=== PATIENT | male | born 1960 | race Caucasian/White ===

== ENCOUNTER 2017-04-14 22:06 | Inpatient (IN) | payer MEDICAID ==
[~2017-04-14] VITALS: Ht 167.6 cm; Wt 73.2 kg
[~2017-04-14 22:06] MED LIST: GABA600T2; HYDR-3686 PO; LEVA15HF4 INH; OMEP20CA10 PO; RISP1TAB3 PO
[2017-04-14] MEDS ORDERED: ondansetron/PF 4mg/2ml inj IV ONE (22:25)
[2017-04-14] MEDS ORDERED: morphine 2 MG/ML inj. syringe IV ONE (22:25)
[2017-04-14 22:59] LABS: CLARITY,URINE CLEAR (Clear); COLOR,URINE YELLOW (Yellow); GLUCOSE, URINE NEGATIVE (Neg); KETONES,URINE TRACE mg/dl (Neg); LEUKOCYTE ESTERASE ,URINE NEGATIVE (Neg); NITRITES, URINE NEGATIVE (Neg); OCCULT BLOOD,URINE LARGE (Neg); PROTEIN,URINE NEGATIVE (Neg)
[2017-04-14 23:05] LABS: UA COLLECTION TYPE CLN CATCH MIDSTREAM
[2017-04-14 23:10] LABS: SQUAMOUS EPITHELIAL CELL,UR FEW /LPF (FEW)
[2017-04-14 23:11] LABS: BACTERIA,URINE FEW /HPF (Neg); RBC,URINE 50-100 /HPF (0-2); WBC,URINE 0-4 /HPF (0-4)
[2017-04-14 23:18] LABS: BASOPHILS % (AUTO) 0.1 % (0-1); EOSINOPHILS % (AUTO) 0.6 % (0-6); HEMATOCRIT 30.3 % (42.0-52.0); HEMOGLOBIN 10.4 g/dl (14.0-17.9); LYMPHOCYTES # (AUTO) 1.3 X10'3 (1.1-4.8); LYMPHOCYTES % (AUTO) 35.6 % (21-51); MEAN CORPUSCULAR HGB CONC 34.4 % (33.0-36.5); MEAN CORPUSCULAR VOLUME 92.9 FL (78-98); MONOCYTES # (AUTO) 0.3 X10'3 (0-0.9); MONOCYTES % (AUTO) 8.8 % (2-12); NEUTROPHILS # (AUTO) 1.9 X10'3 (1.8-7.7); NEUTROPHILS % (AUTO) 54.9 % (42-75); PLATELET COUNT 126 X10'3 (140-440); RED BLOOD COUNT 3.26 X10'6 (4.70-6.10); RED CELL DISTRIBUTION WIDTH 14.9 % (11.5-14.5); WHITE BLOOD COUNT 3.5 X10'3 (4.5-11.0)
[2017-04-14 23:30] LABS: INR 1.1 INR; PARTIAL THROMBOPLASTIN TIME 33 SECONDS (22-32); PROTHROMBIN TIME 11.3 SECONDS (9.0-12.0)
[2017-04-14 23:35] LABS: ALANINE AMINOTRANSFERASE 40 U/L (12-78); ALBUMIN 2.5 G/DL (3.4-5.0); ALBUMIN/GLOBULIN RATIO 0.9 (1.1-1.5); ALKALINE PHOSPHATASE 122 IU/L (46-116); ANION GAP 16 (8-16); ASPARTATE AMINO TRANSFERASE 53 U/L (10-37); BILIRUBIN,TOTAL 0.6 MG/DL (0.1-1.0); BLOOD UREA NITROGEN 17 MG/DL (7-18); BUN/CREATININE RATIO 13.1 (5.4-32.0); CALCIUM 7.7 MG/DL (8.5-10.1); CHLORIDE 91 MMOL/L (99-107); GLUCOSE 95 MG/DL (70-104); LIPASE 154 U/L (73-393); POTASSIUM 3.6 MMOL/L (3.5-5.1); SODIUM 124 MMOL/L (135-145); TOTAL CARBON DIOXIDE 17.5 MMOL/L (24-32); TOTAL PROTEIN 5.2 G/DL (6.4-8.2); eGFR 58 ML/MIN
[2017-04-14] MEDS ORDERED: furosemide 10 MG/1 ML 10ml inj IV ONE (23:35)
[2017-04-14] MEDS ORDERED: lactulose 20gm/30ml cup PO ONE (23:45)
[2017-04-14] MEDS ORDERED: neomycin sulfate 500mg tablet PO ONE (23:45)
[2017-04-15] MEDS ORDERED: haloperidol lactate 5mg/ml inj IM PRN (00:55)
[2017-04-15] MEDS ORDERED: dextrose 50%-water 50ml dispensing syringe IV PRN (00:55)
[2017-04-15] MEDS ORDERED: acetaminophen 325mg tablet PO PRN ×2 (00:55)
[2017-04-15] MEDS ORDERED: metoclopramide 5 mg/ml inj IV PRN (00:55)
[2017-04-15] MEDS ORDERED: magnesium Cl slow-release 64mg tablet PO PRN (00:55)
[2017-04-15] MEDS ORDERED: LORazepam 1 MG tablet PO PRN (00:55)
[2017-04-15] MEDS ORDERED: lactulose 20gm/30ml cup PO PRN (00:55)
[2017-04-15] MEDS ORDERED: mag hydrox/Alum hydrox/simeth 30ml oral suspension PO PRN (00:55)
[2017-04-15] MEDS ORDERED: ondansetron/PF 4mg/2ml inj IV PRN (00:55)
[2017-04-15] MEDS ORDERED: potassium Cl 20 mEq SR tablet PO PRN ×2 (00:55)
[2017-04-15] MEDS ORDERED: diphenhydrAMINE 25mg capsule PO PRN (00:55)
[2017-04-15] MEDS ORDERED: diphenhydrAMINE 50 mg/ml inj IV PRN (00:55)
[2017-04-15] MEDS ORDERED: potassium Cl 40MEQ/NS 500ml 500 ML IV PRN (00:55)
[2017-04-15] MEDS ORDERED: acetaminophen 650mg rectal suppository RC PRN (00:55)
[2017-04-15] MEDS ORDERED: magnesium 4gm in 100ml NS 100 ML IV PRN (00:55)
[2017-04-15] MEDS ORDERED: magnesium 2GM in 50ml NS 50 ML IV PRN (00:55)
[2017-04-15] MEDS ORDERED: morphine 2 MG/ML inj. syringe IV PRN ×2 (00:55)
[2017-04-15] MEDS ORDERED: haloperidol 5mg tablet PO PRN (00:55)
[2017-04-15] MEDS ORDERED: magnesium hydroxide 30ml (MOM) UD suspension PO PRN (00:55)
[2017-04-15] MEDS ORDERED: bisacodyl 10mg suppository rectal RC PRN (00:55)
[2017-04-15] MEDS ORDERED: HYDROcodone/acetaminophen 5mg/325mg tablet PO PRN (00:55)
[2017-04-15] MEDS ORDERED: HYDROmorphone inj. 0.5 MG/0.5 ML DISP.SYRIN IV PRN ×2 (00:55)
[2017-04-15] MEDS ORDERED: hydrOXYzine 25 MG tablet PO PRN (00:55)
[2017-04-15] MEDS ORDERED: LORazepam 2 mg/ml vial IV PRN (00:55)
[2017-04-15] MEDS ORDERED: thiamine 100mg/ml 2ml inj. IV ONE (01:32)
[2017-04-15 01:39] LABS: HEMOGLOBIN A1C 4.6 % (4.5-6.2)
[2017-04-15 01:50] LABS: MAGNESIUM 1.2 MG/DL (1.5-2.4)
[2017-04-15 02:00] VITALS: BP 146/85
[2017-04-15 07:00] VITALS: BP 125/88
[2017-04-15] MEDS ORDERED: pantoprazole 40mg Tablet.DR PO SCH (07:30)
[2017-04-15] MEDS ORDERED: furosemide 10 MG/1 ML 10ml inj IV SCH (08:00)
[2017-04-15] MEDS: K and/or MAG REPLACEMENT MC SCH (08:00)
[2017-04-15] MEDS: risperiDONE 0.5mg tablet PO SCH (09:36)
[2017-04-15] MEDS: docusate sod 100mg capsule PO SCH ×2 (09:36→20:00)
[2017-04-15] MEDS: pantoprazole 40mg Tablet.DR PO SCH (09:36)
[2017-04-15] MEDS: levoFLOXACIN-Levaquin 500mg/D5 100 ML IV SCH (09:38)
[2017-04-15] MEDS: HYDROcodone/acetaminophen 10/325mg tab PO PRN ×2 (09:47→19:44)
[2017-04-15 12:00] VITALS: BP 130/89
[2017-04-15 18:00] VITALS: BP 132/69
[2017-04-15] MEDS: furosemide 10 MG/1 ML 10ml inj IV SCH (19:43)
[2017-04-15] MEDS: risperiDONE 2mg tablet PO SCH (20:59)
[2017-04-15] MEDS ORDERED: temazepam 15mg capsule PO PRN (21:00)
[2017-04-15 21:01] LABS: ALBUMIN 2.2 G/DL (3.4-5.0); ANION GAP 12 (8-16); BLOOD UREA NITROGEN 19 MG/DL (7-18); BUN/CREATININE RATIO 13.6 (5.4-32.0); CALCIUM 7.8 MG/DL (8.5-10.1); CHLORIDE 98 MMOL/L (99-107); GLUCOSE 111 MG/DL (70-104); POTASSIUM 3.4 MMOL/L (3.5-5.1); SODIUM 129 MMOL/L (135-145); TOTAL CARBON DIOXIDE 19.2 MMOL/L (24-32); eGFR 53 ML/MIN
[2017-04-16] VITALS: BP 106/79
[2017-04-16] MEDS: HYDROcodone/acetaminophen 10/325mg tab PO PRN ×3 (02:57→21:57)
[2017-04-16] MEDS: docusate sod 100mg capsule PO SCH ×2 (06:56→21:56)
[2017-04-16] MEDS: pantoprazole 40mg Tablet.DR PO SCH (07:12)
[2017-04-16] MEDS: furosemide 10 MG/1 ML 10ml inj IV SCH ×2 (07:13→21:56)
[2017-04-16] MEDS: levoFLOXACIN-Levaquin 500mg/D5 100 ML IV SCH (07:13)
[2017-04-16] MEDS: diatr meglu/diatrizoate 30ml oral sol.-(3 dose) bottle PO PRN ×2 (07:18→09:39)
[2017-04-16 07:28] VITALS: BP 160/88
[2017-04-16] MEDS: K and/or MAG REPLACEMENT MC SCH (08:00)
[2017-04-16 08:03] LABS: BASOPHILS % (AUTO) 0.5 % (0-1); EOSINOPHILS % (AUTO) 0.6 % (0-6); HEMATOCRIT 28.5 % (42.0-52.0); HEMOGLOBIN 9.9 g/dl (14.0-17.9); LYMPHOCYTES # (AUTO) 0.9 X10'3 (1.1-4.8); LYMPHOCYTES % (AUTO) 31.8 % (21-51); MEAN CORPUSCULAR HEMOGLOBIN 32.4 PG (27.0-31.0); MEAN CORPUSCULAR HGB CONC 34.7 % (33.0-36.5); MEAN CORPUSCULAR VOLUME 93.4 FL (78-98); MEAN PLATELET VOLUME 6.6 FL (7.4-10.4); MONOCYTES # (AUTO) 0.3 X10'3 (0-0.9); MONOCYTES % (AUTO) 10.8 % (2-12); NEUTROPHILS # (AUTO) 1.6 X10'3 (1.8-7.7); NEUTROPHILS % (AUTO) 56.3 % (42-75); PLATELET COUNT 107 X10'3 (140-440); RED BLOOD COUNT 3.05 X10'6 (4.70-6.10); RED CELL DISTRIBUTION WIDTH 15.4 % (11.5-14.5); WHITE BLOOD COUNT 2.9 X10'3 (4.5-11.0)
[2017-04-16 08:30] LABS: ALANINE AMINOTRANSFERASE 34 U/L (12-78); ALBUMIN 2.1 G/DL (3.4-5.0); ALBUMIN/GLOBULIN RATIO 0.8 (1.1-1.5); ALKALINE PHOSPHATASE 99 IU/L (46-116); ANION GAP 12 (8-16); ASPARTATE AMINO TRANSFERASE 39 U/L (10-37); BILIRUBIN,TOTAL 0.6 MG/DL (0.1-1.0); BLOOD UREA NITROGEN 20 MG/DL (7-18); BUN/CREATININE RATIO 14.6 (5.4-32.0); CALCIUM 7.8 MG/DL (8.5-10.1); CHLORIDE 99 MMOL/L (99-107); CHOL/HDL RATIO 4.9 (0.00-4.99); CHOLESTEROL 73 MG/DL (0-200); CREATININE 1.37 MG/DL (0.60-1.10); GLUCOSE 118 MG/DL (70-104); HDL CHOLESTEROL 15 MG/DL (35-60); LDL CHOLESTEROL 31 MG/DL (50-100); MAGNESIUM 1.1 MG/DL (1.5-2.4); SODIUM 131 MMOL/L (135-145); TOTAL CARBON DIOXIDE 20.1 MMOL/L (24-32); TOTAL PROTEIN 4.6 G/DL (6.4-8.2); TRIGLYCERIDES 99 MG/DL (20-135); eGFR 54 ML/MIN
[2017-04-16] MEDS: risperiDONE 0.5mg tablet PO SCH (09:38)
[2017-04-16 09:39] LABS: PLATELET ESTIMATE DECREASED; TOTAL CELLS COUNTED 100
[2017-04-16 09:40] LABS: POLYCHROMASIA 1+
[2017-04-16 09:41] LABS: ELLIPTOCYTES FEW; SCHISTOCYTES FEW; SPHEROCYTES FEW; TEAR DROP CELLS 1+
[2017-04-16 10:00] VITALS: BP 151/73
[2017-04-16] MEDS: potassium Cl 40MEQ/NS 500ml 500 ML IV PRN ×2 (12:24→15:48)
[2017-04-16] MEDS ORDERED: normal saline 1000ml 1,000 ML IV SCH (14:10)
[2017-04-16 16:15] VITALS: BP 153/84
[2017-04-16 16:32] VITALS: BP 150/94
[2017-04-16] MEDS: lactobacillus rhamnosus 10,000 MMU CELLS/CAPSULE PO SCH (16:46)
[2017-04-16] MEDS ORDERED: albumin (human) 25% 100 ML IV solution IV ONE (18:45)
[2017-04-16 19:00] VITALS: BP 166/87
[2017-04-16] MEDS: risperiDONE 2mg tablet PO SCH (21:56)
[2017-04-17] VITALS: BP 152/77
[2017-04-17 05:18] LABS: BASOPHILS % (AUTO) 0.4 % (0-1); EOSINOPHILS % (AUTO) 0.6 % (0-6); HEMATOCRIT 25.1 % (42.0-52.0); HEMOGLOBIN 8.8 g/dl (14.0-17.9); LYMPHOCYTES # (AUTO) 1.1 X10'3 (1.1-4.8); LYMPHOCYTES % (AUTO) 37.8 % (21-51); MEAN CORPUSCULAR HEMOGLOBIN 32.4 PG (27.0-31.0); MEAN CORPUSCULAR HGB CONC 34.9 % (33.0-36.5); MEAN CORPUSCULAR VOLUME 92.9 FL (78-98); MEAN PLATELET VOLUME 7.3 FL (7.4-10.4); MONOCYTES # (AUTO) 0.3 X10'3 (0-0.9); MONOCYTES % (AUTO) 8.3 % (2-12); NEUTROPHILS # (AUTO) 1.6 X10'3 (1.8-7.7); NEUTROPHILS % (AUTO) 52.9 % (42-75); PLATELET COUNT 96 X10'3 (140-440); RED CELL DISTRIBUTION WIDTH 15.3 % (11.5-14.5)
[2017-04-17 05:37] LABS: ALANINE AMINOTRANSFERASE 27 U/L (12-78); ALBUMIN 2.3 G/DL (3.4-5.0); ALBUMIN/GLOBULIN RATIO 1.1 (1.1-1.5); ALKALINE PHOSPHATASE 80 IU/L (46-116); ANION GAP 10 (8-16); ASPARTATE AMINO TRANSFERASE 30 U/L (10-37); BILIRUBIN,TOTAL 0.5 MG/DL (0.1-1.0); BLOOD UREA NITROGEN 17 MG/DL (7-18); BUN/CREATININE RATIO 14.7 (5.4-32.0); CALCIUM 7.6 MG/DL (8.5-10.1); CHLORIDE 105 MMOL/L (99-107); CREATININE 1.16 MG/DL (0.60-1.10); GLUCOSE 93 MG/DL (70-104); MAGNESIUM 1.8 MG/DL (1.5-2.4); POTASSIUM 3.6 MMOL/L (3.5-5.1); SODIUM 136 MMOL/L (135-145); TOTAL CARBON DIOXIDE 21.3 MMOL/L (24-32); TOTAL PROTEIN 4.4 G/DL (6.4-8.2); eGFR 66 ML/MIN
[2017-04-17] MEDS: HYDROcodone/acetaminophen 10/325mg tab PO PRN ×2 (05:53→12:08)
[2017-04-17] MEDS: docusate sod 100mg capsule PO SCH (07:25)
[2017-04-17] MEDS: furosemide 10 MG/1 ML 10ml inj IV SCH (07:30)
[2017-04-17] MEDS: pantoprazole 40mg Tablet.DR PO SCH (07:32)
[2017-04-17] MEDS: lactobacillus rhamnosus 10,000 MMU CELLS/CAPSULE PO SCH (07:32)
[2017-04-17] MEDS: levoFLOXACIN-Levaquin 500mg/D5 100 ML IV SCH (07:34)
[2017-04-17] MEDS: risperiDONE 0.5mg tablet PO SCH (07:34)
[2017-04-17 07:42] VITALS: BP 156/87
[2017-04-17] MEDS: K and/or MAG REPLACEMENT MC SCH (08:00)
[2017-04-17 12:36] VITALS: BP 151/82
[2017-04-18] MEDS ORDERED: furosemide 40mg tablet PO SCH (08:00)
[2017-04-18] MEDS ORDERED: spironolactone 25 MG tablet PO SCH (08:30)
== END 2017-04-17 16:38 | disposition left against medical advice (07) | DRG 280 ==
LOC: ER 22:07 → ED HOLD 04-15 00:52 → SUR 3N 04-15 01:56
PROVIDERS: ADMIT Family Medicine; ATTEND Internal Medicine
PROC: 0W9G3ZZ Drainage of Peritoneal Cavity, Percutaneous Approach (ICD-10-PCS; principal; 2017-04-16)
DX: K70.31 Alcoholic cirrhosis of liver with ascites (principal); K72.90 Hepatic failure, unspecified without coma; E87.2 Acidosis; E87.1 Hypo-osmolality and hyponatremia; E83.42 Hypomagnesemia; B19.20 Unspecified viral hepatitis C without hepatic coma; I10 Essential (primary) hypertension; K21.9 Gastro-esophageal reflux disease without esophagitis; F10.20 Alcohol dependence, uncomplicated; F41.9 Anxiety disorder, unspecified; F17.210 Nicotine dependence, cigarettes, uncomplicated; F20.9 Schizophrenia, unspecified; Z80.0 Family history of malignant neoplasm of digestive organs; Z83.3 Family history of diabetes mellitus; Z88.0 Allergy status to penicillin
CPT/HCPCS: 36415; 49083; 71045; 74018; 74176; 76705; 80048; 80053; 80061; 81001; 82140; 83036; 83605; 83690; 83735; 83880; 84100; 84132; 84145; 85025; 85610; 85730; 87070; 96374; 96375; 99285; J1940; J1956; J2270; J2405; J3411; J3475; J3480; J7030; P9047; Q9963